=== PATIENT | male | born 1955 | race Caucasian/White ===

== ENCOUNTER 2017-01-27 12:54 | Emergency (ER) | payer OTHER ==
[~2017-01-27] VITALS: Ht 185.4 cm; Wt 87.3 kg
[~2017-01-27 12:54] MED LIST: CLIN300C99 PO; GLIP10TA3 PO; LAC PO; LEVO0.155 PO; LEVO750T2 PO; LISI10TA11 PO; LOVA10TA27 PO; METF1000 PO; POLYO TP; TRAM50TA3 PO
[2017-01-27 12:57] VITALS: BP 106/51
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
[2017-01-27] MEDS ORDERED: SILVER SULFADIAZINE 1% 50 GM JAR TP ONE (13:41)
[2017-01-27 14:07] VITALS: BP 106/51
--- NOTE | 2017-01-27 14:08 | NUR ---
Patient discharged with v/s stable. Written and verbal after care instructions given and explained. Patient alert, oriented and verbalized understanding of instructions. Ambulatory with steady gait. All questions addressed prior to discharge. ID band removed. Patient advised to follow up with PMD. Rx of TYLENOL #3 AND SILVADENE CREAM given. Patient educated on indication of medication including possible reaction and side effects. Opportunity to ask questions provided and answered.
== END 2017-01-27 14:08 | disposition home or self-care (01) ==
LOC: MED 12:54
DX: T23.252A Burn of second degree of left palm, initial encounter (principal); E11.9 Type 2 diabetes mellitus without complications; I10 Essential (primary) hypertension; X19.XXXA Contact with other heat and hot substances, initial encounter; Y93.89 Activity, other specified; Y92.89 Other specified places as the place of occurrence of the external cause; Y99.8 Other external cause status
CPT/HCPCS: 16020; 99284

== ENCOUNTER 2017-01-29 15:20 | Emergency (ER) | payer OTHER ==
[~2017-01-29] VITALS: Ht 185.4 cm; Wt 87.1 kg
[2017-01-29 15:25] VITALS: BP 132/92
--- NOTE | 2017-01-29 22:17 | NUR ---
PATIENT LEFT WITHOUT BEING SEEN BY DR. SUTTON. NO FURTHER CARE PROVIDED FOR PATIENT.
--- NOTE | 2017-01-29 22:17 | NUR ---
Joelle arevalo in [facility] - 01/30/17 at 0224 by CAMRON PATIENT LEFT WITHOUT BEING SEEN BY DR. KEVIN. NO FURTHER CARE PROVIDED FOR PATIENT.
== END 2017-01-29 22:17 | disposition left against medical advice (07) ==
LOC: MED 15:20
DX: T23.002D Burn of unspecified degree of left hand, unspecified site, subsequent encounter (principal); Z53.21 Procedure and treatment not carried out due to patient leaving prior to being seen by health care provider